=== PATIENT | male | born 1965 | race Caucasian/White ===

== ENCOUNTER 2021-12-02 17:35 | Emergency (ER) | payer BC ==
[~2021-12-02] VITALS: Ht 182.9 cm; Wt 87.7 kg
[2021-12-02 17:42] VITALS: BP_SYST 188; BP_SYST 200; BP_DIAS 125; BP_DIAS 126
--- NOTE | 2021-12-02 17:59 | NUR ---
EKG AT TRIAGE ROOM. NOTIFIED DR NAVARRO FOR HIGH BP 200/125 AT THIS TIME.
--- NOTE | 2021-12-02 18:09 | NUR ---
PT AMB TO BED 3.
[2021-12-02 18:21] LABS: BASOPHILS % (AUTO) 0.5 % (0.0-2.0); EOSINOPHILS # (AUTO) 0.2 K/uL (0-0.4); EOSINOPHILS % (AUTO) 3.7 % (0.0-4.0); HEMATOCRIT 38.9 % (36-52); HEMOGLOBIN 13.3 g/dL (12.0-18.0); LYMPHOCYTES # (AUTO) 1.5 K/uL (2.0-11.5); MEAN CORPUSCULAR HEMOGLOBIN 29 pg (27-31); MEAN CORPUSCULAR HGB CONC 34 g/dL (33-37); MEAN CORPUSCULAR VOLUME 85.3 fL (80-94); MONOCYTES # (AUTO) 0.5 K/uL (0.8-1.0); MONOCYTES % (AUTO) 9.1 % (1.7-9.3); NEUTROPHILS # (AUTO) 3.6 K/uL (1.8-7.7); NEUTROPHILS % (AUTO) 60.7 % (42.2-75.2); PLATELET COUNT (AUTO) 243 K/uL (140-450); RED BLOOD CELL COUNT(AUTO) 4.56 MIL/uL (4.20-6.10); WHITE BLOOD COUNT (AUTO) 5.9 K/uL (4.8-10.8)
--- NOTE | 2021-12-02 18:30 | NUR ---
in [facility] bib for ear pain and high blood pressure from urgent care given clonidine. bp 140/100 @ this time. denies headace, dizziness, chest pain. aao x4. reps even and nonlabored. ambulatory
[2021-12-02 18:44] LABS: ALBUMIN 3.8 g/dL (3.4-5.0); ANION GAP 11.2 (8-16); ASPARTATE AMINOTRANSFERASE 15 U/L (15-37); CARBON DIOXIDE 28.4 mmol/L (21-32); CHLORIDE 105 mmol/L (98-107); CREATININE 0.9 mg/dL (0.6-1.3); GFR ARICAN-AMERICAN 113 mL/min (>90); GLUCOSE 96 mg/dL (74-106); POTASSIUM 3.6 mmol/L (3.5-5.1); SODIUM SERUM 141 mmol/L (136-145); TOTAL BILIRUBIN 0.4 mg/dL (0.0-1.0); UREA NITROGEN, BLOOD 16 mg/dL (7-18)
--- NOTE | 2021-12-02 19:11 | NUR ---
report given to marc nelson
[2021-12-02 19:24] VITALS: BP 129/91
--- NOTE | 2021-12-02 19:24 | NUR ---
Patient discharged with v/s stable. Written and verbal after care instructions given and explained. Patient verbalized understanding. Ambulatory with steady gait. All questions addressed prior to discharge. Advised to follow up with PMD.
== END 2021-12-02 19:24 | disposition home or self-care (01) ==
LOC: MED 17:35
DX: I10 Essential (primary) hypertension (principal); H92.02 Otalgia, left ear
CPT/HCPCS: 36415; 80053; 81002; 84484; 85025; 93005; 99284